=== PATIENT | male | born 1965 | race Caucasian/White ===

== ENCOUNTER 2018-08-08 12:16 | Inpatient (IN) ==
--- NOTE | 2018-08-08 12:40 | History & Physical Report ---
Date of Encounter: 08/08/18 Time of Encounter: 12:39 24 Hour HP Update - Instructions Instructions: If the History and Physical is less than 30 days old and was completed prior to A.M. admission and or procedure and has NOT been updated on calendar day of procedure please complete this update prior to performing procedure. - Update Patient reports changes in Medical Condition: No Changes in examination, assessment, or condition: No Preop tests/diagnostics Reviewed: Yes Surgery Remains Indicated: Yes - Pre-Operative Checklist Preoperative Checklist Indicated: No Prophylactic Antibiotic Ordered: Yes Is VTE Prophylaxis Indicated?: Yes
[2018-08-08] MEDS ORDERED: CeFAZolin Syr 2,000MG/20 ML 2,000 MG/20 ML SYRINGE IVPB ONE (12:44)
[2018-08-08] MEDS ORDERED: Ringers Solution, Lactated 1,000 ML IVC SCH ×2 (12:45→18:44)
--- NOTE | 2018-08-08 13:18 | Anesthesia Evaluation PreOp ---
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 Any Significant HX Other Medical History: Denies Any Significant HX Anesthesia History: No Prior Anesthetic Complications, Past Anesthesia (L shoulder scope x 3, R shoulder scope) Alcohol Use: none Drug use: none Medications and Allergies Allergy/AdvReac Type Severity Reaction Status Date / Time dextromethorphan AdvReac Difficulty Verified 08/08/18 12:43 [From Actinel] Breathing gabapentin [From Neurontin] AdvReac Hypertensio Verified 08/08/18 12:43 n guaifenesin [From Actinel] AdvReac Difficulty Verified 08/08/18 12:43 Breathing pseudoephedrine AdvReac Difficulty Verified 08/08/18 12:43 [From Actinel] Breathing - Meds/Allergy Pre-op Review Medications Reviewed: Yes Allergies Reviewed: Yes Beta Blockers on Current Med List: No Anesthesia Exam O2 Sat Height 1.7 m Height 1.7 m Height 1.7 m Weight 83.461 kg Weight 83.461 kg Weight 83.461 kg O2 Sat by Pulse Oximetry 99 Vital Signs Temp Pulse Resp BP Pulse Ox 98.0 F 62 18 143/96 99 08/08/18 12:40 08/08/18 12:40 08/08/18 12:40 08/08/18 12:40 08/08/18 12:40 Height: 1.7m Weight: 83kg NPO (# of Hours): >8 - HEENT Pupil (Motor): Pupils equal, EOMI Mallampati: III Teeth: Missing (upper and lower molars) Oral Opening: Greater than 3 - SENIOR SALES ADMINISTRATOR LOC: Oriented SENIOR SALES ADMINISTRATOR Motor: Normal RUE, Normal LUE, Normal RLE, Normal LLE, Normal Face SENIOR SALES ADMINISTRATOR Sensory: Normal: RUE, LUE, RLE, LLE, Face - Cardiac Rhythm: Regular - Pulmonary Breath Sounds: bilateral Clear Respiratory Effort: Symmetrical Anesthesia Assess/Plan ASA Score: 1 Level of consciousness: Cooperative Anesthetic Plan: General, Regional Nerve Block Regional Nerve Block Plan: Supraclavicular (left) Monitoring Plan: Standard Monitors Recovery Plan: PACU
[2018-08-08] MEDS ORDERED: Acetaminophen IV 1,000 MG/100 ML INFUS..BTL ONE (13:19)
[2018-08-08] MEDS ORDERED: Lidocaine -MPF 4% 5 ML AMPUL ONE (13:52)
[2018-08-08] MEDS ORDERED: Dexamethasone 4 MG/ML VIAL ONE (13:52)
[2018-08-08] MEDS ORDERED: Lidocaine -MPF 2% 2 ML VIAL ONE (13:52)
[2018-08-08] MEDS ORDERED: Ondansetron 4 MG/2 ML VIAL ONE (13:52)
[2018-08-08] MEDS ORDERED: *HR* Propofol 200 MG/20 ML VIAL IVP ONE (13:52)
[2018-08-08] MEDS ORDERED: *HR* Midazolam HCl 2 MG/2 ML VIAL ONE (13:52)
[2018-08-08] MEDS ORDERED: *HR* Succinylcholine 200 MG/10 ML VIAL IVP ONE (13:52)
[2018-08-08] MEDS ORDERED: *HR* FentaNYL (PF) 100 MCG/2 ML VIAL ONE ×2 (13:52→17:23)
[2018-08-08] MEDS ORDERED: *HR* Rocuronium Bromide 50 MG/5 ML VIAL ONE (13:52)
[2018-08-08] MEDS ORDERED: Ethanol\\Acetic Acid\\Na Ace\\Ben 1,000 ML IRRIG.SOLN IR ONE (13:54)
--- NOTE | 2018-08-08 14:05 | Discharge Summary ---
Orders not resulted at time of discharge: Pending orders 08/08/18 14:00 Left Shoulder Complete [XR shoulder complete LT] [XR] Routine Hemoglobin and Hematocrit [HEME] Routine Date of Encounter: 08/08/18 - Discharge Diagnosis (1) Rotator cuff tear arthropathy of left shoulder Priority: Primary Status: Chronic (2) Status post reverse total arthroplasty of left shoulder Priority: Primary Status: Acute - Hospital Course Hospital course: Mr. Concepcion is a 52 year old male - Time Spent with Patient Total time spent providing and/or coordinating discharge services: - Discharge Medications Home Medications: OxyCODONE Immed Rel [Roxicodone 5 MG] 5 mg PO Q6HR PRN 5 Days #20 tablet 08/08/18 [Rx] Allergies/Adverse Reactions: Allergy/AdvReac Type Severity Reaction Status Date / Time dextromethorphan AdvReac Difficulty Verified 08/08/18 12:43 [From Actinel] Breathing gabapentin [From Neurontin] AdvReac Hypertensio Verified 08/08/18 12:43 n guaifenesin [From Actinel] AdvReac Difficulty Verified 08/08/18 12:43 Breathing pseudoephedrine AdvReac Difficulty Verified 08/08/18 12:43 [From Actinel] Breathing Primary care physician: PCP NONE - Discharge Instructions Follow Up With: NONE,PCP [Primary Care Provider] -
[2018-08-08] MEDS ORDERED: ROPIVACAINE HCL/PF 0.5% 30 ML VIAL ONE (15:02)
[2018-08-08] MEDS ORDERED: Bupivacaine/Clonidine Syringe 1 EACH SYRINGE ONE (15:02)
--- NOTE | 2018-08-08 15:46 | Anesthesia Procedures ---
Date of Encounter: 08/08/18 Time of Encounter: 15:43 Procedures: Anesthesia - Nerve Block Procedure Date: 08/08/18 Time: 15:44 Pre-op Diagnosis: left rotator cuff arthropathy Surgical Procedure: Left total shoulder replacement Checklist: Correct Patient Identifier, Correct procedure, History checked Correct side: Left Blood Thinner: No Monitor Applied: BP, Pulse Oximetry Supplemental Oxygen via Nasal Cannula (L/min): 2 Sedation: Versed (mg): 2 Sedation: Fentanyl (mcg): 100 Indication: Post Op Analgesia Pre-op Neuro Deficits: No Block Type: Supraclavicular, Other (SCB, ICB) Sterile Technique: Yes Ultrasound used: Yes Anatomy identified: Yes Visual spread of Local: Yes Neuro Stimulation: Yes Nerve Stimulator Range: 0.2 - 0.4 mA Blood on Needle Aspiration: No Smooth Injection of Local: Yes Pain with Injection of Local: No Prep: Chlorhexadine Needle: 22 x 50 mm Stimuplex Local: 0.25% Bupivicaine w/Clonidine 20 mcg/cc (SCB 5ml, ICB 10ml), Ropivacaine (30ml + 8MG decadron SCB) Volume (cc): 50 Number of Attempts: 1 Complications: None/effective block Vitals: Vital Signs/O2 Sat, Most Current Temp Pulse Resp BP Pulse Ox 97.9 F 65 15 138/99 98 08/08/18 15:40 08/08/18 15:40 08/08/18 15:40 08/08/18 15:40 08/08/18 15:40
[2018-08-08] MEDS ORDERED: *HR* PHENYLEPHRINE 1,000 MCG/10 ML SYRINGE IVP ONE (16:51)
[2018-08-08] MEDS ORDERED: EPHEDrine 50 MG/ML VIAL ONE (16:57)
[2018-08-08] MEDS ORDERED: Tranexamic Acid 1,000 MG/10 ML VIAL ONE (17:01)
--- NOTE | 2018-08-08 17:22 | Orthopedic Operative Note ---
Date of procedure: 08/08/18 Pre-op diagnosis: Left shoulder cuff tear arthropathy Post-op diagnosis: same Procedure: Procedure: Total Shoulder Replacment Reverse, left Estimated blood loss: 100 cc Hardware: Metal and polyethylene replacement: Arthrex 28, +4 , 35 mmscrew glenoid baseplate, 4 locking 5.5 screw, 42+4 glenosphere, 9 apex humeral stem, poly insert 3 Exam Under anesthesia: Restricted motion anterior instability Procedural Notes: Grade 4 arthritic changes humeral head glenoid socket posterior wear, B2 glenoid, osteophyte formation, rotator cuff tear Operative procedure: The patient was brought to the operating room and placed on the operating room table. After general anesthesia was administered the operative shoulder was examined. Findings were noted. The patient was placed in the modified beachchair position. All pressure points were padded appropriately. And the head was stabilized in the neutral position. The operative extremity was prepped and draped in the sterile surgical fashion. The patient received IV antibiotics prior to skin incision. A standard deltopectoral approach was made to the operative shoulder. Incision was made to the skin and subcutaneous tissue,hemo stasis was obtained with Bovie cautery. Using careful blunt dissection the cephalic vein was identified and mobilized medially. The deltopectoral interval was developed and the clavipectoral fascia was incised. The subscap was released off the lesser tuberosity and tagged with #2 FiberWire suture subscap was irreparable. The humerus was dislocated patient noted to have tear supraspinatus tendon, and the humeral cut was made along the anatomic neck. Patient noted to have Grade 4 arthritic changes humeral head glenoid socket posterior wear, B2 glenoid, osteophyte formation, rotator cuff tear Anterior and posterior Bankart retractors were placed to expose the glenoid. The glenoid guide was seated and the centering hole was made. It was reamed with the appropriate reamer. The high side was reamed down. The 28, S4, 35 mm baseplate was seated and secured with 4 locking 5.5 screw. The baseplate was irrigated and dried and the 42+4 Glenosphere was seated and secured with the David taper. The David taper was tested and found to be secure, glenosphere fixation was secondarily secured with the central screw. The humerus was redislocated and prepared with the diaphyseal reamers, followed by a broaching process up to the appropriate size 9 apex in the patient's anatomic version. The metaphyseal reamer was then utilized. Trial reduction found the shoulder to be relocatable. Trial components were removed and 9 apex stem was impacted in place in the patient's anatomic version. Trial reduction found the shoulder to be relocatable and stable with the appropriate 3 Ernestina Trial component was removed and the real implant was seated and secured the shoulder was reduced. The shoulder had excellent motion and excellent stability and no evidence of dislocation. The deep tissue was irrigated with pulse irrigation. The deltopectoral interval was closed with a running #1 PDS suture, subcutaneous tissue was irrigated and closed with 0 PDS suture, the skin was closed with Dermabond. The patient was placed in a sterile dressing, abduction brace and extubated. The patient was then transferred to the recovery room in stable condition. Anesthesia: LIZANDRO Surgeon: Jaya Estrada Was there an assistant foreman present: No Estimated blood loss (cc): 100 Condition: stable Disposition: PACU
[2018-08-08] MEDS ORDERED: *HR* OxyCODONE Immed Rel 5 MG TABLET PO PRN (17:50)
[2018-08-08] MEDS: *HR* HYDROmorphone (PF) 1 MG/ML SYRINGE IVP PRN ×2 (18:00→18:14)
[2018-08-08] MEDS ORDERED: *HR* Enoxaparin 30 MG/0.3 ML SYRINGE SQ SCH (18:00)
[2018-08-08 18:26] LABS: Hematocrit 37.7 % (37.5-50.1); Hemoglobin 12.9 g/dL (12.9-16.9)
--- NOTE | 2018-08-08 18:33 | Anesthesia Evaluation Post Op ---
Date of Encounter: 08/08/18 Time of Encounter: 18:32 - Vital Signs Vital Signs: Vital Signs/O2 Sat, Most Current Temp Pulse Resp BP Pulse Ox 98.2 F 73 14 126/92 97 08/08/18 18:18 08/08/18 18:18 08/08/18 18:18 08/08/18 18:18 08/08/18 18:18 - Lungs Lungs: Clear Ascult./Percussion - Airway Airway: Non-obstructed - Cardiovascular Regular Rate - Mental Status Mental Status: Alert & Oriented, Answers Appropriately - Pain Pain Scale: 4 Pain Scale used: Numeric (1 - 10) - Nausea Vomiting Nausea Vomiting: Not Present - Hydration Hydration: Ice chips, Has not voided - Discharge PostOp Status: Transfer Patient to floor
[2018-08-08] MEDS ORDERED: Sennosides 8.6 MG TABLET PO PRN (18:44)
[2018-08-08] MEDS ORDERED: Naloxone 0.4 MG/ML INJ IVP PRN (18:44)
[2018-08-08] MEDS ORDERED: traMADol 50 MG TABLET PO PRN (18:44)
[2018-08-08] MEDS ORDERED: Ondansetron 4 MG/2 ML VIAL IVP PRN (18:44)
[2018-08-08] MEDS ORDERED: MOM Conc 10 ML UD.LIQ PO PRN (18:44)
[2018-08-08] MEDS ORDERED: *HR* OxyCODONE/APAP 5/325 TABLET PO PRN (18:44)
[2018-08-08] MEDS ORDERED: Temazepam 15 MG CAPSULE PO PRN (18:44)
[2018-08-08] MEDS: *HR* OxyCODONE Immed Rel 5 MG TABLET PO PRN (20:59)
[2018-08-09] MEDS: *HR* OxyCODONE Immed Rel 5 MG TABLET PO PRN (02:38)
[2018-08-09 02:39] VITALS: BP 126/73
[2018-08-09 02:49] LABS: Hematocrit 37.5 % (37.5-50.1); Hemoglobin 12.9 g/dL (12.9-16.9)
[2018-08-09 03:08] LABS: BUN/Creatinine Ratio 19 (6-26); Blood Urea Nitrogen 18 mg/dL (6-20); Calcium 8.9 mg/dL (8.6-10.3); Carbon Dioxide 25 mEq/L (23-29); Chloride 105 mEq/L (98-107); Glucose 182 mg/dL (70-105); Osmolality,Calculated 289 (280-300); Sodium 136 mEq/L (136-145); eGFR For Non-African Americans > 60 (> 60)
[2018-08-09] MEDS ORDERED: *HR* Enoxaparin 30 MG/0.3 ML SYRINGE SQ SCH (06:00)
== END 2018-08-09 06:47 | disposition home or self-care (01) | DRG 483 ==
LOC: SAMDAY 12:16 → 3NENU 19:50
PROVIDERS: ADMIT Orthopaedic Surgery; ATTEND Orthopaedic Surgery